=== PATIENT | female | born 1955 | race Caucasian/White ===

== ENCOUNTER → 2017-06-27 | Outpatient (CLI) | payer BC | LOC: RAD 14:07 | DX: Z12.31 Encounter for screening mammogram for malignant neoplasm of breast (principal) ==

== ENCOUNTER → 2018-02-23 | Outpatient (CLI) | payer BC | LOC: RAD 10:58 | DX: M89.38 Hypertrophy of bone, other site (principal); R22.0 Localized swelling, mass and lump, head ==

== ENCOUNTER → 2019-01-20 | Outpatient (CLI) | payer BC | LOC: RAD 10:15 | DX: Z12.31 Encounter for screening mammogram for malignant neoplasm of breast (principal) ==